=== PATIENT | male | born 1960 | race Caucasian/White ===

== ENCOUNTER 2018-04-12 10:36 | Emergency (ER) | payer MEDICAID ==
[~2018-04-12] VITALS: Ht 175.3 cm; Wt 71.8 kg
[2018-04-12 10:42] VITALS: BP 141/60
[2018-04-12] MEDS ORDERED: NAPR-56 PO (11:07)
== END 2018-04-12 11:58 | disposition home or self-care (01) ==
LOC: ER 10:37
DX: M54.9 Dorsalgia, unspecified (principal); Z79.899 Other long term (current) drug therapy; Z56.0 Unemployment, unspecified; Y08.89XA Assault by other specified means, initial encounter; Y93.89 Activity, other specified; Y92.89 Other specified places as the place of occurrence of the external cause; Y99.8 Other external cause status
CPT/HCPCS: 99282

== ENCOUNTER 2018-11-17 08:30 | Day surgery (SDC) | payer MEDICAID ==
[2018-11-13 15:21] LABS: BASOPHILS % (AUTO) 0.6 % (0-1); EOSINOPHILS # (AUTO) 0.1 X10'3 (0-0.9); EOSINOPHILS % (AUTO) 1.4 % (0-6); LYMPHOCYTES # (AUTO) 1.2 X10'3 (1.1-4.8); LYMPHOCYTES % (AUTO) 22.7 % (21-51); MEAN CORPUSCULAR HEMOGLOBIN 30.5 PG (27.0-31.0); MEAN CORPUSCULAR HGB CONC 32.8 % (33.0-36.5); MEAN PLATELET VOLUME 8.9 FL (7.4-10.4); MONOCYTES # (AUTO) 0.4 X10'3 (0-0.9); MONOCYTES % (AUTO) 7.5 % (2-12); NEUTROPHILS # (AUTO) 3.7 X10'3 (1.8-7.7); NEUTROPHILS % (AUTO) 67.8 % (42-75); PRE OP HEMATOCRIT 43.1 % (42.0-52.0); PRE OP HEMOGLOBIN 14.1 g/dL (14.0-17.9); PRE OP PLATELET COUNT 177 X10'3 (140-440); RED BLOOD COUNT 4.63 X10'6 (4.70-6.10); RED CELL DISTRIBUTION WIDTH 12.9 % (11.5-14.5)
[2018-11-13 15:27] LABS: CLARITY,URINE CLEAR (Clear); COLOR,URINE YELLOW (Yellow); GLUCOSE, URINE NEGATIVE (Neg); KETONES,URINE NEGATIVE (Neg); LEUKOCYTE ESTERASE ,URINE NEGATIVE (Neg); NITRITES, URINE NEGATIVE (Neg); OCCULT BLOOD,URINE TRACE-INTACT (Neg); PROTEIN,URINE NEGATIVE (Neg); UROBILINOGEN,URINE 0.2 E.U/dL (0.2-1.0)
[2018-11-13 15:28] LABS: UA COLLECTION TYPE CLN CATCH MIDSTREAM
[2018-11-13 15:33] LABS: BACTERIA,URINE NONE SEEN /HPF (Neg); MUCUS STRANDS NONE SEEN /LPF (Neg); RBC,URINE 0-2 /HPF (0-2); SQUAMOUS EPITHELIAL CELL,UR NONE SEEN /LPF (FEW); WBC,URINE NONE SEEN /HPF (0-4)
[2018-11-13 15:36] LABS: ALBUMIN/GLOBULIN RATIO 1.1 (1.1-1.5); ALKALINE PHOSPHATASE 55 IU/L (46-116); BLOOD UREA NITROGEN 17 MG/DL (7-18); BUN/CREATININE RATIO 16.3 (5.4-32.0); CHLORIDE 105 MMOL/L (99-107); CREATININE 1.04 MG/DL (0.60-1.10); PRE OP ALT 26 U/L (30-65); PRE OP ANION GAP 11 (8-16); PRE OP AST 22 U/L (10-37); PRE OP GLUCOSE 93 MG/DL (70-104); PRE OP POTASSIUM 3.5 MMOL/L (3.4-5.1); PRE OP SODIUM 142 MMOL/L (135-145); TOTAL CARBON DIOXIDE 25.9 MMOL/L (24-32); TOTAL PROTEIN 7.6 G/DL (6.4-8.2); eGFR 73 ML/MIN
[~2018-11-17] VITALS: Ht 175.3 cm; Wt 70.3 kg
[2018-11-17] VITALS (7 sets, daily range): BP systolic 101–128; BP diastolic 61–88
[~2018-11-17 08:30] MED LIST: BUPIVAcaine/PF 2.5mg/ml (0.25%) 10ml vial ONE; BUPR150T27 PO; QUET25TA34 PO; cefazolin/dext.iso 2gm/100 ML IV ONE; famotidine 20mg tablet PO ONE; ringers solution, lacted 1,000 ML IV SCH
[2018-11-17] MEDS ORDERED: ringers solution, lacted 1,000 ML IV SCH (10:22)
[2018-11-17] MEDS ORDERED: morphine 4 MG/ML inj SYRINge IV PRN ×2 (10:25)
[2018-11-17] MEDS ORDERED: proCHLORperazine 10 MG/2 ml inj IV PRN (10:25)
[2018-11-17] MEDS ORDERED: meperidine/PF 25mg/ml syringe IV PRN ×3 (10:25)
[2018-11-17] MEDS ORDERED: ondansetron/PF 4mg/2ml inj IV PRN (10:25)
[2018-11-17] MEDS ORDERED: LIDOcaine 1% 30ml preserv. free vial ONE (10:33)
[2018-11-17] MEDS ORDERED: sevoflurane 250ml liquid IH ONE (10:46)
[2018-11-17] MEDS ORDERED: fentaNYL/PF 50MCG/1 ML 2ML syringe ONE (10:50)
[2018-11-17] MEDS ORDERED: midazolam 2 mg/2 ml injection ONE (10:51)
[2018-11-17] MEDS ORDERED: ePHEDrine 50MG/ML INJ. ONE (11:18)
[2018-11-17] MEDS ORDERED: propofol inj 20 ML IV ONE (11:18)
--- NOTE | 2018-11-17 11:47 | NUR ---
Received from OR via , accompanied by Anesthesiologist DR MOORE and report given by Anesthesiolgist. AWAKENS TO VOICE. VITALS STABLE. DRESSING DI. JESUS PAIN.
[2018-11-17] MEDS ORDERED: BUPIVAcaine/PF 2.5 mg/ml (0.25%) 30ml vial IJ ONE (11:54)
--- NOTE | 2018-11-17 12:47 | NUR ---
AWAKE AND ORIENTED. VITALS STABLE. DRESSING DI. STATES ONLY MILD DISCOMFORT. HOME WITH HIS AT THIS TIME.
[2018-11-17] MEDS ORDERED: acetaminophen w/codeine (30MG) #3 tablet PO PRN (12:50)
== END 2018-11-17 12:47 | disposition home or self-care (01) ==
LOC: PAS 08:30
PROVIDERS: ATTEND Surgery
DX: D17.23 Benign lipomatous neoplasm of skin and subcutaneous tissue of right leg (principal); F32.9 Major depressive disorder, single episode, unspecified; Z87.891 Personal history of nicotine dependence; Z98.890 Other specified postprocedural states; Z79.899 Other long term (current) drug therapy
CPT/HCPCS: 27339; 36415; 80053; 81001; 82948; 85025; 93005; A6449; J0690; J2250; J2704; J3010; J3490; A7000; J7120

== ENCOUNTER 2018-12-25 16:20 | Emergency (ER) | payer MEDICAID ==
[~2018-12-25] VITALS: Ht 175.3 cm; Wt 71.0 kg
[~2018-12-25 16:20] MED LIST changes: -BUPIVAcaine/PF 2.5mg/ml (0.25%) 10ml vial ONE; -cefazolin/dext.iso 2gm/100 ML IV ONE; -famotidine 20mg tablet PO ONE; -ringers solution, lacted 1,000 ML IV SCH
[2018-12-25] MEDS ORDERED: TETanus/Pertussis (Acell)/Diphther VAC/PF (Tdap-Adult) 0.5ml syringe IM ONE (18:15)
[2018-12-25] MEDS ORDERED: LEVO750T21 PO (18:20)
[2018-12-25] MEDS ORDERED: CEPH-572 PO (18:20)
[2018-12-25 19:19] VITALS: BP 116/78
== END 2018-12-25 19:21 | disposition home or self-care (01) ==
LOC: ER 16:21
DX: S91.331A Puncture wound without foreign body, right foot, initial encounter (principal); Z79.899 Other long term (current) drug therapy; Z56.0 Unemployment, unspecified; W22.8XXA Striking against or struck by other objects, initial encounter; Y93.01 Activity, walking, marching and hiking; Y92.89 Other specified places as the place of occurrence of the external cause; Y99.8 Other external cause status
CPT/HCPCS: 73630; 90471; 90715; 99283

== ENCOUNTER 2021-09-11 08:58 | Day surgery (SDC) | payer MEDICAID ==
[2021-09-06 15:33] LABS: BASOPHILS % (AUTO) 0.4 % (0-1); EOSINOPHILS # (AUTO) 0.8 X10'3 (0-0.9); LYMPHOCYTES # (AUTO) 1.1 X10'3 (1.1-4.8); LYMPHOCYTES % (AUTO) 14.9 % (21-51); MEAN CORPUSCULAR HEMOGLOBIN 31.7 PG (27.0-31.0); MEAN CORPUSCULAR VOLUME 93.4 FL (78-98); MEAN PLATELET VOLUME 8.2 FL (7.4-10.4); MONOCYTES # (AUTO) 0.6 X10'3 (0-0.9); MONOCYTES % (AUTO) 8.4 % (2-12); NEUTROPHILS # (AUTO) 4.5 X10'3 (1.8-7.7); NEUTROPHILS % (AUTO) 64.3 % (42-75); PRE OP HEMATOCRIT 41.8 % (42.0-52.0); PRE OP HEMOGLOBIN 14.2 g/dL (14.0-17.9); PRE OP PLATELET COUNT 199 X10'3 (140-440); RED BLOOD COUNT 4.48 X10'6 (4.70-6.10); RED CELL DISTRIBUTION WIDTH 13.7 % (11.5-14.5)
[2021-09-06 15:47] LABS: ALBUMIN 3.5 G/DL (3.4-5.0); ALBUMIN/GLOBULIN RATIO 0.9 (1.1-1.5); ALKALINE PHOSPHATASE 56 IU/L (46-116); BLOOD UREA NITROGEN 16 MG/DL (7-18); BUN/CREATININE RATIO 14.4 (5.4-32.0); CALCIUM 8.4 MG/DL (8.5-10.1); CHLORIDE 106 MMOL/L (99-107); CREATININE 1.11 MG/DL (0.60-1.10); PRE OP ALT 27 U/L (30-65); PRE OP ANION GAP 7 (8-16); PRE OP AST 19 U/L (10-37); PRE OP BILIRUB, TOTAL 0.8 MG/DL (0.0-1.0); PRE OP GLUCOSE 95 MG/DL (70-104); PRE OP POTASSIUM 3.9 MMOL/L (3.4-5.1); PRE OP SODIUM 145 MMOL/L (135-145); TOTAL CARBON DIOXIDE 32.3 MMOL/L (24-32); TOTAL PROTEIN 7.2 G/DL (6.4-8.2); eGFR 67 ML/MIN
[2021-09-11] VITALS (9 sets, daily range): BP systolic 109–132; BP diastolic 74–94
[~2021-09-11] VITALS: Ht 175.3 cm; Wt 62.1 kg
[~2021-09-11 08:58] MED LIST changes: +DEXT10CA19 PO; -QUET25TA34 PO; +QUET25TA36 PO
[2021-09-11] MEDS ORDERED: famotidine 20mg tablet PO ONE (09:34)
[2021-09-11] MEDS ORDERED: cefazolin/dext.iso 2gm/50ml 50 ML IV ONE (09:35)
[2021-09-11] MEDS ORDERED: ringers solution, lacted 1,000 ML IV SCH ×2 (09:35→11:10)
[2021-09-11] MEDS ORDERED: BUPIVAcaine/PF 2.5 mg/ml (0.25%) 30ml vial ONE (10:16)
[2021-09-11] MEDS ORDERED: LIDOcaine 1% 30ml preserv. free vial ONE (10:16)
[2021-09-11] MEDS ORDERED: fentaNYL/PF 50MCG/1 ML 2ML syringe ONE (10:26)
[2021-09-11] MEDS ORDERED: midazolam 1 mg/ML 2ml injection ONE (10:26)
[2021-09-11] MEDS ORDERED: rocuronium 10mg/ml inj IV ONE (10:29)
[2021-09-11] MEDS ORDERED: proCHLORperazine 10 MG/2 ml inj IV PRN (11:10)
[2021-09-11] MEDS ORDERED: meperidine/PF 25mg/ml syringe IV PRN ×2 (11:10)
[2021-09-11] MEDS ORDERED: ondansetron/PF 4mg/2ml inj IV PRN (11:10)
[2021-09-11] MEDS ORDERED: morphine 2 MG/ML inj. syringe IV PRN (11:10)
[2021-09-11] MEDS ORDERED: morphine 4 MG/ML inj SYRINge IV PRN (11:10)
[2021-09-11] MEDS ORDERED: propofol inj 20 ML IV ONE (11:21)
[2021-09-11] MEDS ORDERED: ondansetron/PF 4mg/2ml inj ONE (11:21)
[2021-09-11] MEDS ORDERED: dexamethasone sod phosphate 4mg/ml inj. ONE (11:21)
[2021-09-11] MEDS ORDERED: neostigmine methylsulfate 1 MG/ML 10ml vial ONE (11:22)
--- NOTE | 2021-09-11 11:41 | NUR ---
Received from OR via , accompanied by Anesthesiologist DR MOORE and report given by Anesthesiolgist. AWAKENS TO VOICE. VITALS STABLE. DRESSINGS DI. JESUS PAIN. ABD SOFT.
[2021-09-11] MEDS ORDERED: HYDROcodone/acetaminophen 5mg/325mg tablet PO PRN (11:50)
[2021-09-11] MEDS: meperidine/PF 25mg/ml syringe IV PRN ×2 (12:24→12:47)
--- NOTE | 2021-09-11 13:21 | NUR ---
AWAKE AND ORIENTED. VITALS STABLE. DRESSINGS DI. STATES PAIN IIMPROVING. HOME WITH HIS AT THIS TIME.
== END 2021-09-11 13:21 | disposition home or self-care (01) ==
LOC: PAS 08:58
PROVIDERS: ATTEND Surgery
DX: K40.90 Unilateral inguinal hernia, without obstruction or gangrene, not specified as recurrent (principal); G89.29 Other chronic pain; Z20.822 Contact with and (suspected) exposure to COVID-19; Z79.899 Other long term (current) drug therapy; Z87.891 Personal history of nicotine dependence; Z98.890 Other specified postprocedural states
CPT/HCPCS: 36415; 49650; 80053; 82948; 85025; 93005; C1781; J1100; J2001; J2175; J2250; J2405; J2704; J2710; J3010; J3490; S2900; U0003; U0005; Z7506; Z7508; Z7512; A4215; A4618; J7120

== ENCOUNTER 2024-02-02 06:50 | Inpatient (IN) | payer MEDICAID ==
[~2024-02-02] VITALS: Ht 175.3 cm; Wt 65.9 kg
[2024-02-02] MEDS: normal saline 1000ML IV soln IVB ONE (07:22)
[2024-02-02] MEDS: ondansetron/PF 4mg/2ml inj IV ONE (07:22)
[2024-02-02] MEDS: morphine 4 MG/ML inj SYRINge IV ONE ×2 (07:22→10:35)
[2024-02-02] MEDS: CefTRIAXone/D5W-Rocephin 1gm 50 ML IV ONE (07:22)
[2024-02-02 09:40] LABS: BASOPHILS % (AUTO) 0.1 % (0-1); EOSINOPHILS % (AUTO) 0.1 % (0-6); HEMATOCRIT 40.7 % (42.0-52.0); HEMOGLOBIN 13.7 g/dl (14.0-17.9); LYMPHOCYTES # (AUTO) 0.4 X10'3 (1.1-4.8); LYMPHOCYTES % (AUTO) 3.8 % (21-51); MEAN CORPUSCULAR HEMOGLOBIN 31.4 PG (27.0-31.0); MEAN CORPUSCULAR HGB CONC 33.6 g/dL (33.0-36.5); MEAN CORPUSCULAR VOLUME 93.4 FL (78-98); MEAN PLATELET VOLUME 8.5 FL (7.4-10.4); MONOCYTES # (AUTO) 0.7 X10'3 (0-0.9); NEUTROPHILS # (AUTO) 10.3 X10'3 (1.8-7.7); PLATELET COUNT 188 X10'3 (140-440); RED BLOOD COUNT 4.36 X10'6 (4.70-6.10); RED CELL DISTRIBUTION WIDTH 13.5 % (11.5-14.5); WHITE BLOOD COUNT 11.5 X10'3 (4.5-11.0)
[2024-02-02] MEDS ORDERED: magnesium 2GM in 50ml NS 50 ML IV PRN (10:25)
[2024-02-02] MEDS ORDERED: magnesium Cl slow-release 64mg tablet PO PRN (10:25)
[2024-02-02] MEDS ORDERED: potassium Cl 20 mEq SR tablet PO PRN ×2 (10:25)
[2024-02-02] MEDS: normal saline 1000ml 1,000 ML IV SCH (10:25)
[2024-02-02] MEDS ORDERED: HYDROcodone/acetaminophen 5mg/325mg tablet PO PRN (10:25)
[2024-02-02] MEDS ORDERED: potassium Cl 40MEQ/1/2NS 520ml 520 ML IV PRN (10:25)
[2024-02-02] MEDS ORDERED: acetaminophen 325mg tablet PO PRN ×2 (10:25)
[2024-02-02] MEDS ORDERED: magnesium 4gm in 100ml NS 100 ML IV PRN (10:25)
[2024-02-02 10:40] LABS: ALANINE AMINOTRANSFERASE 19 U/L (12-78); ALBUMIN 3.6 G/DL (3.4-5.0); ALBUMIN/GLOBULIN RATIO 1.1 (1.1-1.5); ALKALINE PHOSPHATASE 51 IU/L (46-116); ANION GAP 9 (8-16); ASPARTATE AMINO TRANSFERASE 19 U/L (10-37); BILIRUBIN,TOTAL 1.8 MG/DL (0.1-1.0); BLOOD UREA NITROGEN 18 MG/DL (7-18); BUN/CREATININE RATIO 19.4 (10.0-20.0); CALCIUM 8.7 MG/DL (8.5-10.1); CHLORIDE 105 MMOL/L (99-107); CREATININE 0.93 MG/DL (0.60-1.10); GLUCOSE 138 MG/DL (70-104); POTASSIUM 3.6 MMOL/L (3.5-5.1); SODIUM 140 MMOL/L (135-145); TOTAL CARBON DIOXIDE 26.2 MMOL/L (24-32); eCRCL 75 ML/MIN; eGFR 82 ML/MIN
[2024-02-02 10:50] LABS: LIPASE 24 U/L (16-77)
[2024-02-02] MEDS ORDERED: LISD30CA2 PO (11:24)
[2024-02-02] MEDS ORDERED: LISD40CA PO (11:24)
[2024-02-02 11:51] LABS: BILIRUBIN,URINE NEGATIVE (Neg); CLARITY,URINE CLOUDY (Clear); COLOR,URINE YELLOW (Yellow); GLUCOSE, URINE NEGATIVE (Neg); KETONES,URINE 40 mg/dl (Neg); LEUKOCYTE ESTERASE ,URINE NEGATIVE (Neg); NITRITES, URINE NEGATIVE (Neg); OCCULT BLOOD,URINE NEGATIVE (Neg); PH,URINE 8.5 (4.8-8.0); PROTEIN,URINE TRACE mg/dl (Neg); UROBILINOGEN,URINE 0.2 E.U/dL (0.2-1.0)
[2024-02-02 11:58] LABS: UA COLLECTION TYPE URINAL
[2024-02-02 12:03] LABS: MUCUS STRANDS MANY /LPF (Neg)
[2024-02-02 12:04] LABS: AMORPHOUS PHOSPHATES 4+; WBC,URINE 0-4 /HPF (0-4)
[2024-02-02 12:05] LABS: BACTERIA,URINE FEW /HPF (Neg); SQUAMOUS EPITHELIAL CELL,UR FEW /LPF (FEW)
[2024-02-02] MEDS: morphine 2 MG/ML inj. syringe IV PRN (14:02)
[2024-02-02] MEDS: ondansetron/PF 4mg/2ml inj IV PRN (14:02)
[2024-02-02] MEDS ORDERED: HYDROmorphone 2mg tablet PO PRN (14:25)
[2024-02-02 15:09] VITALS: RESP 18; O2SAT 97
[2024-02-02] MEDS: HYDROmorphone 1 mg/ml syringe IV PRN (15:22)
[2024-02-02 16:35] VITALS: BP 154/87; PULSE 82; RESP 18; TEMP 97.5; O2SAT 96
[2024-02-02 18:00] VITALS: BP 150/95; PULSE 87; RESP 18; TEMP 97.8; O2SAT 95
[2024-02-02] MEDS: heparin, porcine 5000 units/ml vial SQ SCH (19:23)
[2024-02-02 20:00] VITALS: RESP 18; O2SAT 95
[2024-02-02] MEDS: diatr meglu/diatrizoate 30ml oral sol.-(3 dose) bottle PO SCH (20:58)
[2024-02-02] MEDS ORDERED: diatrozoate meglu/diatrozoate sod (37% iodine) 120ML oral solution PO SCH (21:00)
[2024-02-02 22:00] VITALS: BP 146/87; PULSE 92; RESP 16; TEMP 97.6; O2SAT 94
[2024-02-03 06:00] VITALS: BP 122/72; PULSE 84; RESP 20; TEMP 97.2; O2SAT 93
[2024-02-03 06:11] LABS: BASOPHILS % (AUTO) 0.1 % (0-1); EOSINOPHILS % (AUTO) 0.1 % (0-6); HEMATOCRIT 39.6 % (42.0-52.0); HEMOGLOBIN 13.4 g/dl (14.0-17.9); LYMPHOCYTES # (AUTO) 0.4 X10'3 (1.1-4.8); LYMPHOCYTES % (AUTO) 5.8 % (21-51); MEAN CORPUSCULAR HEMOGLOBIN 31.9 PG (27.0-31.0); MEAN CORPUSCULAR VOLUME 93.8 FL (78-98); MEAN PLATELET VOLUME 8.6 FL (7.4-10.4); MONOCYTES # (AUTO) 0.9 X10'3 (0-0.9); MONOCYTES % (AUTO) 13.6 % (2-12); NEUTROPHILS # (AUTO) 5.3 X10'3 (1.8-7.7); NEUTROPHILS % (AUTO) 80.4 % (42-75); PLATELET COUNT 178 X10'3 (140-440); RED BLOOD COUNT 4.22 X10'6 (4.70-6.10); RED CELL DISTRIBUTION WIDTH 13.9 % (11.5-14.5); WHITE BLOOD COUNT 6.6 X10'3 (4.5-11.0)
[2024-02-03 06:36] LABS: ALANINE AMINOTRANSFERASE 15 U/L (12-78); ALBUMIN 2.9 G/DL (3.4-5.0); ALBUMIN/GLOBULIN RATIO 0.9 (1.1-1.5); ALKALINE PHOSPHATASE 48 IU/L (46-116); ANION GAP 6 (8-16); ASPARTATE AMINO TRANSFERASE 20 U/L (10-37); BILIRUBIN,TOTAL 1.8 MG/DL (0.1-1.0); BLOOD UREA NITROGEN 17 MG/DL (7-18); CALCIUM 7.4 MG/DL (8.5-10.1); CHLORIDE 103 MMOL/L (99-107); GLUCOSE 139 MG/DL (70-104); SODIUM 138 MMOL/L (135-145); TOTAL CARBON DIOXIDE 29.5 MMOL/L (24-32); TOTAL PROTEIN 6.2 G/DL (6.4-8.2); eCRCL 70 ML/MIN; eGFR 75 ML/MIN
[2024-02-03] MEDS: diatr meglu/diatrizoate 30ml oral sol.-(3 dose) bottle PO SCH (07:27)
[2024-02-03] MEDS: CefTRIAXone 2gm/D5W 50ml BAG 50 ML IV SCH (07:27)
[2024-02-03 12:30] VITALS: BP 119/68; PULSE 76; RESP 16; TEMP 99.3; O2SAT 96
[2024-02-03 18:00] VITALS: BP 108/57; PULSE 82; RESP 14; TEMP 98.7; O2SAT 95
[2024-02-03 20:00] VITALS: RESP 20; O2SAT 95
[2024-02-03 22:00] VITALS: BP 107/65; PULSE 73; RESP 14; TEMP 98.6; O2SAT 95
[2024-02-04 06:00] VITALS: BP 110/62; PULSE 66; RESP 14; TEMP 97.2; O2SAT 93
[2024-02-04 07:12] LABS: BASOPHILS % (AUTO) 0.3 % (0-1); EOSINOPHILS # (AUTO) 0.2 X10'3 (0-0.9); EOSINOPHILS % (AUTO) 2.5 % (0-6); HEMATOCRIT 34.2 % (42.0-52.0); HEMOGLOBIN 11.7 g/dl (14.0-17.9); MEAN CORPUSCULAR HGB CONC 34.1 g/dL (33.0-36.5); MEAN CORPUSCULAR VOLUME 93.8 FL (78-98); MEAN PLATELET VOLUME 8.5 FL (7.4-10.4); MONOCYTES # (AUTO) 0.9 X10'3 (0-0.9); MONOCYTES % (AUTO) 11.3 % (2-12); NEUTROPHILS # (AUTO) 5.7 X10'3 (1.8-7.7); NEUTROPHILS % (AUTO) 72.9 % (42-75); PLATELET COUNT 142 X10'3 (140-440); RED BLOOD COUNT 3.65 X10'6 (4.70-6.10); RED CELL DISTRIBUTION WIDTH 13.7 % (11.5-14.5); WHITE BLOOD COUNT 7.9 X10'3 (4.5-11.0)
[2024-02-04 07:36] LABS: ALANINE AMINOTRANSFERASE 14 U/L (12-78); ALBUMIN 2.4 G/DL (3.4-5.0); ALBUMIN/GLOBULIN RATIO 0.8 (1.1-1.5); ALKALINE PHOSPHATASE 39 IU/L (46-116); ANION GAP 4 (8-16); ASPARTATE AMINO TRANSFERASE 18 U/L (10-37); BLOOD UREA NITROGEN 10 MG/DL (7-18); BUN/CREATININE RATIO 11.1 (10.0-20.0); CALCIUM 7.4 MG/DL (8.5-10.1); CHLORIDE 104 MMOL/L (99-107); GLUCOSE 105 MG/DL (70-104); POTASSIUM 3.5 MMOL/L (3.5-5.1); SODIUM 138 MMOL/L (135-145); TOTAL CARBON DIOXIDE 29.6 MMOL/L (24-32); TOTAL PROTEIN 5.5 G/DL (6.4-8.2); eCRCL 77 ML/MIN; eGFR 85 ML/MIN
[2024-02-04 08:00] VITALS: RESP 14; O2SAT 93
[2024-02-04 10:00] VITALS: BP 117/69; PULSE 68; RESP 16; TEMP 100.4; O2SAT 96
== END 2024-02-04 15:35 | disposition home or self-care (01) | DRG 247 ==
LOC: ER 06:50 → ED HOLD 10:27 → SUR 3N 13:45
PROVIDERS: ADMIT Internal Medicine; ATTEND Internal Medicine
PROC: 0D9670Z Drainage of Stomach with Drainage Device, Via Natural or Artificial Opening (ICD-10-PCS; principal; 2024-02-03)
DX: K56.600 Partial intestinal obstruction, unspecified as to cause (principal); F32.A Depression, unspecified; F41.9 Anxiety disorder, unspecified; F90.9 Attention-deficit hyperactivity disorder, unspecified type; Z79.899 Other long term (current) drug therapy
CPT/HCPCS: 36415; 71045; 74176; 80053; 81001; 83605; 83690; 84145; 84484; 85025; 87040; 87081; 96365; 96375; 97161; 99285; C1758; G0378; J0696; J1170; J1644; J2270; J2405; J7030; Q9963

== ENCOUNTER 2024-11-08 09:38 | Outpatient (CLI) | payer MEDICARE, MEDICAID ==
[~2024-11-08 09:38] MED LIST changes: -DEXT10CA19 PO; +LISD30CA2 PO
== END 2024-11-08 23:59 | disposition home or self-care (01) ==
LOC: RAD 09:38
PROVIDERS: ATTEND Nurse Practitioner Family
DX: Z12.2 Encounter for screening for malignant neoplasm of respiratory organs (principal); R91.8 Other nonspecific abnormal finding of lung field; M47.814 Spondylosis without myelopathy or radiculopathy, thoracic region; S22.050A Wedge compression fracture of T5-T6 vertebra, initial encounter for closed fracture; S22.060A Wedge compression fracture of T7-T8 vertebra, initial encounter for closed fracture; Z87.891 Personal history of nicotine dependence; X58.XXXA Exposure to other specified factors, initial encounter; Y93.89 Activity, other specified; Y92.89 Other specified places as the place of occurrence of the external cause; Y99.8 Other external cause status
CPT/HCPCS: 71271